=== PATIENT | female | born 1935 ===

== ENCOUNTER 2016-11-11 16:49 | Emergency (ER) | payer MEDICARE, MEDICAID ==
[2016-11-11 16:56] VITALS: O2SAT 98
--- NOTE | 2016-11-11 18:27 | ED PDOC ---
Lower Extremity Pain/Injury Time Seen by Provider: 11/11/16 17:45 Chief Complaint (Nursing): Lower Extremity Problem/Injury Chief Complaint (Provider): LE swelling History Per: Patient History/Exam Limitations: no limitations Additional Complaint(s): 81yo F in ED for eval of swelling to b/l LE x "couple of days" with hx of HTN and severe arthritis. Pt states that she has been having pain to her LE " long time" and tinlging in b/l hands" long time". pt states denies CP, SOB, dizziness , vision changes. Pt admits to severe calf pain and pain with walking. Past Medical History Reviewed: Historical Data, Nursing Documentation, Vital Signs Vital Signs: Last Vital Signs Temp 97.7 F 11/11/16 16:54 Pulse 86 11/11/16 16:54 Resp 17 11/11/16 16:54 BP 140/85 11/11/16 16:54 Pulse Ox 98 11/11/16 16:54 - Medical History PMH: HTN - Family History Family History: States: No Known Family Hx - Allergies Allergies/Adverse Reactions: Allergies Allergy/AdvReac Type Severity Reaction Status Date / Time No Known Allergies Allergy Verified 11/11/16 16:56 Wells Criteria for PE - Wells Criteria for Pulmonary Embolism Clinical Signs and Symptoms of DVT: No P.E is #1 Diagnosis, or Equally Likely: No Heart Rate >100: No Immobilization at least 3 days;Surgery previous 4 weeks: No Previous, objectively diagnosed PE or DVT: No Hemoptysis: No Malignancy w/treatment within 6 months, or palliative: No Total Score: 0 Physical Exam - Reviewed Nursing Documentation Reviewed: Yes Vital Signs Reviewed: Yes - Physical Exam Appears: Positive for: Well, Non-toxic, No Acute Distress Head Exam: Positive for: ATRAUMATIC, NORMAL INSPECTION, NORMOCEPHALIC Skin: Positive for: Normal Color, Warm, DRY Cardiovascular/Chest: Positive for: Regular Rate, Rhythm Respiratory: Positive for: CNT, Normal Breath Sounds Gastrointestinal/Abdominal: Positive for: Normal Exam, Bowel Sounds, Soft Extremity: Positive for: Calf Tenderness (b/l), Capillary Refill, Swelling, Other (pulses noted. no skin changes noted) Neurologic/Psych: Positive for: Alert, Oriented - Laboratory Results Result Diagrams: 11/11/16 18:20 11/11/16 18:20 - ECG O2 Sat by Pulse Oximetry: 98 - CT Scan/US US Other Rad Studies (CT/US): Radiology Report Reviewed ((-) NAD) - Progress ED Course And Treament: pt will get lbas, cbc/cmp/pt/ptt and US b/l r/o PE. VS are stable at this time. Re-evaluation Time: 19:17 Condition: Improving,but remains with symptoms Medical Decision Making Medical Decision Making: Pt with negative eUS for DVT and normal lab work. Pt states that he symptoms are chronic, however does not require at this time further ER evaluation or admission. will need f/u with pmd. stable EKG and well appearing with stable VS. Disposition - Clinical Impression Clinical Impression: Arthralgia - Patient ED Disposition Is Patient to be Admitted: No - Disposition Disposition: Routine/Home Disposition Time: 19:54 Condition: STABLE Instructions: Swollen Joint (ED)
--- NOTE | 2016-11-11 18:32 | US ---
PROCEDURE: Bilateral lower extremity venous duplex Doppler. HISTORY: LE swelling and pain b/l hx of HTN COMPARISON: None available. TECHNIQUE: Bilateral common femoral, superficial femoral, popliteal and posterior tibial veins were evaluated. Flow was assessed with color Doppler, compressibility, assessment of phasic flow and augmentation response. FINDINGS: COMMON FEMORAL VEIN: Right CFV: Unremarkable. Left CFV: Unremarkable. SUPERFICIAL FEMORAL VEIN: Right SFV: Unremarkable. Left SFV: Unremarkable. POPLITEAL VEIN: Right Popliteal: Unremarkable. Left Popliteal: Unremarkable. POSTERIOR TIBIAL VEIN: Right PTV: Unremarkable. Left PTV: Unremarkable. OTHER FINDINGS: None. IMPRESSION: No evidence of deep venous thrombosis.
[2016-11-11 18:39] LABS: BASO % 0.7 % (0.0-2.0); EOS # 0.4 K/uL (0.0-0.7); EOS % 6.3 % (0.0-4.0); HEMATOCRIT 34.4 % (34.0-47.0); LYMPH % 32.8 % (20.0-40.0); MEAN CORPUSCULAR HEMOGLOBIN 25.9 pg (27.0-31.0); MEAN PLATELET VOLUME 7.7 fl (7.2-11.7); MONO # 0.6 K/uL (0.0-0.8); MONO % 10.8 % (0.0-10.0); NEUT % 49.4 % (50.0-75.0); NRBC % 0.1 % (0.0-0.0); RED CELL DISTRIBUTION WIDTH 16.2 % (11.5-14.5)
[2016-11-11 18:50] LABS: PARTIAL THROMBOPLASTIN TIME 30.1 Seconds (25.6-37.1)
[2016-11-11 18:55] LABS: ALB/GLOB RATIO 1.3 (1.0-2.1); ALKALINE PHOSPHATASE 101 U/L (38-126); ALT/SGPT 23 U/L (9-52); AST/SGOT 19 U/L (14-36); BILIRUBIN,TOTAL 0.2 mg/dl (0.2-1.3); BLOOD UREA NITROGEN 18 mg/dl (7-17); CALCIUM 8.8 mg/dL (8.4-10.2); CARBON DIOXIDE 24 mmol/L (22-30); CHLORIDE 108 mmol/L (98-107); GFR AFRICAN-AMERICAN > 60; GLUCOSE,RANDOM 101 mg/dL (65-105); POTASSIUM 3.8 MMOL/L (3.6-5.0); SODIUM 141 mmol/l (132-148); TOTAL PROTEIN 6.8 G/DL (6.3-8.2)
[2016-11-11 21:07] VITALS: BP 136/75; PULSE 87; RESP 18; TEMP 98.3
== END 2016-11-11 21:28 | disposition home or self-care (01) ==
LOC: H.ER 16:49
DX: M25.50 Pain in unspecified joint (principal); R60.0 Localized edema; I10 Essential (primary) hypertension